=== PATIENT | female | born 1990 | race Caucasian/White ===

== ENCOUNTER → 2018-09-27 | Outpatient (REF) ==
--- NOTE | 2018-09-27 16:00 | RADIOLOGY IMAGING REPORT ---
FACILITY: [facility] PATIENT NAME: Ting Garcia : 1990 MR: [id number] V: [id number] EXAM DATE: ORDERING PHYSICIAN: MIKI AGUILAR TECHNOLOGIST: Location: [facility] Patient: Ting Garcia : 1990 Visit/Account:[id number] Date of Sevice: 09/27/2018 THYROID HISTORY: Thyroid nodule COMPARISON: None. FINDINGS: SIZE: Right lobe: 5.4 x 1.8 x 2.6 cm Left lobe: 4.6 x 1.1 x 1.5 cm Isthmus: 2 mm PARENCHYMA: Homogeneous. NODULES: Right lobe: * There is a homogeneous isoechoic hypervascular nodule encompassing most of the right lobe measurin g 3.4 x 2.4 x 1.7 cm Left lobe: * None discrete. Isthmus: * None discrete. VASCULARITY: Within normal limits. ADDITIONAL FINDINGS: None. IMPRESSION: There is a large isoechoic hypervascular nodule encompassing most of the right lobe measuring 3.4 cm in diameter for which ultrasound-guided fine-needle aspiration is recommended REFERENCE: 2015 [employer] Management Guidelines for Adult Patients with Thyroid Nodules and D ifferentiated Thyroid Cancer: The [place] Guidelines Task Force on Thyroid Nodul es and Differentiated Thyroid Cancer. SONOGRAPHIC PATTERNS: * Benign: Purely cystic nodules (no solid component); estimated risk of malignancy <1 percent; no bi opsy recommended. * Very Low Suspicion: Spongiform or partially cystic nodules without any of the sonographic features described in low, intermediate, or high suspicion patterns; estimated risk of malignancy <3 percent; consider FNA at > 2 cm (Observation without FNA is also a reasonable option). * Low Suspicion: Isoechoic or hyperechoic solid nodule, or partially cystic nodule with eccentric so lid areas, without microcalcification, irregular margin or ETE (extra-thyroidal extension), or taller than wide shape; estimated risk of malignancy 5-10 percent; recommend FNA at >1.5 cm. * Intermediate Suspicion: Hypoechoic solid nodule with smooth margins without microcalcifications, E TE (extra-thyroidal extension), or taller than wide shape; estimated risk of malignancy 10-20 percent ; recommend FNA at > 1 cm. * High Suspicion: Solid hypoechoic nodule or solid hypoechoic component of a partially cystic nodule with one or more of the following features: irregular margins (infiltrative, microlobulated), microc alcifications, taller than wide shape, rim calcifications with small extrusive soft tissue component, evidence of ETE (extra-thyroidal extension); estimated risk of malignancy >70-90 percent; recommend FNA at > 1 cm. NOTES: * Although a sonographically suspicious subcentimeter thyroid nodule without evidence of extrathyroi zuleima extension or sonographically suspicious lymph nodes may be observed with close sonographic follow -up rather than pursuing immediate FNA, patient age and preference may modify decision-making. A > 50% interval increase in nodule volume and/or development of new suspicious sonographic features are felt to be a valid reasons for potential re-aspiration of a nodule previously shown to have benig n FNA cytology. Report Dictated By: Madiha Parnell MD at 09/27/2018 3:54 PM Report E-Signed By: Madiha Parnell MD at 09/27/2018 3:55 PM TOMMYN:SABI
== END ==
LOC: EDSEX 07:44 → US 07:44
PROVIDERS: ATTEND Family Medicine
DX: E04.1 Nontoxic single thyroid nodule (principal)
CPT/HCPCS: 76536